=== PATIENT | male | born 1955 | race Caucasian/White ===

== ENCOUNTER 2021-12-30 08:57 | Day surgery (SDC) | payer MEDICARE, OTHER ==
[2021-12-26 09:07] VITALS: BMI 23.6
[~2021-12-30 08:57] MED LIST: LACTATED RINGERS 1,000 ML IV SCH
[2021-12-30 09:39] VITALS: TEMP 97.5
[2021-12-30] MEDS ORDERED: PROPOFOL 10 MG/ML 20 ML VIAL IV ONE (10:23)
--- NOTE | 2021-12-30 10:38 | P.PCN ---
Date of Procedure: 12/30/21 Procedure(s) Performed: BRIEF HISTORY: Patient is a 66-year-old pleasant white male scheduled for an elective colonoscopy as a part of screening for colorectal neoplasia PROCEDURE PERFORMED: Colonoscopy. PREOPERATIVE DIAGNOSIS: Screening for colon cancer. IV sedation per Anesthesia. PROCEDURE: After informed consent was obtained, the patient, was brought into the endoscopy unit. IV sedation was administered by Anesthesia under continuous monitoring. Digital rectal examination was normal. Initially the Olympus CF-160 flexible video colonoscope was then inserted in the rectum, gradually advanced into the cecum without any difficulty. Careful examination was performed as the scope was gradually being withdrawn. Ileocecal valve and the appendiceal orifice were visualized and appeared normal. Prep was excellent. Mucosa of the cecum, ascending colon, transverse colon, descending colon, sigmoid colon, and rectum appeared normal. Retroflexion was performed in the rectum and small internal hemorrhoids were seen. The patient tolerated the procedure well. IMPRESSION: Normal-appearing colon from rectum to cecum with no evidence of colorectal neoplasia. RECOMMENDATIONS: Findings of this examination were discussed with the patient well as his family. He was advised to have a repeat screening colonoscopy in 10 years..
[2021-12-30 11:05] VITALS: BP 133/72; PULSE 70; RESP 20
== END 2021-12-30 11:10 | disposition home or self-care (01) ==
LOC: ORWHC2ENDO 08:57
PROVIDERS: ATTEND Internal Medicine Gastroenterology
DX: Z12.11 Encounter for screening for malignant neoplasm of colon (principal); K64.8 Other hemorrhoids; Z85.46 Personal history of malignant neoplasm of prostate; Z97.2 Presence of dental prosthetic device (complete) (partial)
CPT/HCPCS: J2704; G0121

== ENCOUNTER → 2024-02-04 | Outpatient (CLI) | payer MEDICARE, OTHER ==
--- NOTE | 2024-02-04 12:40 | US ---
EXAMINATION TYPE: US kidneys/renal and bladder DATE OF EXAM: 02/04/2024 COMPARISON: NONE CLINICAL INDICATION: Male, 68 years old with history of R31.1 BENIGN ESSENTIAL MICROSCOPIC HEMATURIA; microscopic hematuria once EXAM MEASUREMENTS: Right Kidney: 10.4 x 4.7 x 4.9 cm Left Kidney: 10.6 x 3.8 x 4.8 cm Right Kidney: No hydronephrosis or masses seen Left Kidney: No hydronephrosis or masses seen Bladder: wnl There is no evidence for hydronephrosis at this point in time. No nephrolithiasis is seen. No josie s are identified. The urinary bladder is anechoic. Bilateral ureteral jets are seen. IMPRESSION: 1. Unremarkable right kidney. 2. Cannot exclude mild hydronephrosis of the left kidney. CT urogram would be useful for further eval uation.
== END | disposition home or self-care (01) ==
LOC: RADUSWWP 09:43
PROVIDERS: ATTEND Urology
DX: R31.1 Benign essential microscopic hematuria (principal)
CPT/HCPCS: 76770

== ENCOUNTER 2024-03-23 10:12 | Day surgery (SDC) | payer MEDICARE, OTHER ==
[2024-03-21 14:12] VITALS: BMI 23.2
--- NOTE | 2024-03-22 07:32 | P.GSHP ---
History of Present Illness H&P Date: 03/22/24 Chief Complaint: Microhematuria Patient is a 68-year-old white male who underwent a robotic assisted laparoscopic prostatectomy in 2015 for prostate cancer. He has been found to have microhematuria. His PSA level is undetectable. Renal ultrasound shows possible mild left hydronephrosis. Cystoscopy shows a 1.5 cm bladder calculus attached to a suture at the bladder dome. - Constitutional Constitutional: Denies chills, Denies fever - Genitourinary (Male) Genitourinary: Reports dysuria, Reports hematuria Past Medical History Past Medical History: Cancer, Prostate Disorder Additional Past Medical History / Comment(s): hx prostate cancer, BLADDER STONES History of Any Multi-Drug Resistant Organisms: None Reported Past Surgical History: Hernia Repair, Orthopedic Surgery, Prostate Surgery Additional Past Surgical History / Comment(s): 3 fingers rt hand repair (saw injury), surgery for fx left hip, PROSTATECTOMY Past Anesthesia/Blood Transfusion Reactions: No Reported Reaction Smoking Status: Former smoker - Past Family History Father Family Medical History: Cancer Additional Family Medical History / Comment(s): bone Mother Family Medical History: Cancer Additional Family Medical History / Comment(s): breast Medications and Allergies Home Medications Medication Instructions Recorded Confirmed Type Alive Multivitamin 1 tab PO DAILY 12/26/21 03/21/24 History Allergies Allergy/AdvReac Type Severity Reaction Status Date / Time No Known Allergies Allergy Verified 12/30/21 09:29 Surgical - Exam - General well developed, well nourished, no distress - Respiratory normal respiratory effort - Abdomen Abdomen: soft, non tender, no guarding, no rigid, no rebound - Genitourinary normal penis with no external lesions, testicles non-tender - Psychiatric oriented to time, oriented to person, oriented to place, speech is normal, memory intact Assessment and Plan (1) Calculus in bladder Status: Acute Code(s): N21.0 - CALCULUS IN BLADDER SNOMED Code(s): 43480389 (2) Unspecified hydronephrosis Status: Acute Code(s): N13.30 - UNSPECIFIED HYDRONEPHROSIS SNOMED Code(s): 06379277 Plan: Cystoscopy with cystolithotripsy, left retrograde pyelogram, possible left uret eroscopy, possible left ureteral stent insertion. The procedure has been reviewed in detail with the patient. It was explained to him that the bladder calculus developed as a result of having a permanent suture in the bladder, and as such I intend to remove the visible portion of the suture from the bladder. Potential risks have been reviewed, which include anesthesia, bleeding, infection, and bladder perforation.
[~2024-03-23 10:12] MED LIST changes: +HYDROmorphone 0.5 MG/0.5 ML SYRINGE IVP PRN; -LACTATED RINGERS 1,000 ML IV SCH; +LIDOCAINE 1% (10MG/ML) FOR IV START INTRADERMA PRN; +droPERidol 5 MG/2 ML VIAL IVP ONE
[2024-03-23] MEDS: LACTATED RINGERS 1,000 ML IV SCH (10:46)
[2024-03-23] MEDS: ONDANSETRON 4 MG/2 ML VIAL IVP ONE (10:47)
[2024-03-23] MEDS: DEXAMETHASONE SOD PHOSPHATE 4 MG/ML 1 ML VIAL IV ONE (10:47)
[2024-03-23] MEDS: IV FLUID CONTINUATION 1,000 ML IV ONE (10:48)
[2024-03-23] MEDS ORDERED: LIDOCAINE 1% INJ 10MG/ML (20 ML MDV) ONE (12:57)
[2024-03-23] MEDS ORDERED: PHENYLEPHRINE 10 MG/ML VIAL ONE (12:57)
[2024-03-23] MEDS ORDERED: fentaNYL (PF) 50 MCG/ML 2 ML AMP ONE (12:57)
[2024-03-23] MEDS ORDERED: SUCCINYLCHOLINE CHLORIDE 200 MG/10 ML VIAL IV ONE (12:57)
[2024-03-23] MEDS ORDERED: ROCURONIUM 10 MG/ML (5 ML VIAL) IV ONE (12:57)
[2024-03-23] MEDS ORDERED: PROPOFOL 10 MG/ML 20 ML VIAL IV ONE (12:57)
[2024-03-23] MEDS ORDERED: MIDAZOLAM 2 MG/2 ML VIAL ONE (12:57)
[2024-03-23] MEDS: IOPAMIDOL-370 100ML BTL MISCELLANE ONE (13:36)
--- NOTE | 2024-03-23 14:07 | FL ---
EXAMINATION TYPE: FL urography retrograde DATE OF EXAM: 03/23/2024 COMPARISON: NONE HISTORY: Left retrograde pyelogram TECHNIQUE: Fluoroscopy. FINDINGS: FL TIME .47 SEC [id number] LEFT RETROGRADE PYELOGRAM . IMPRESSION: As Above.
[2024-03-23] MEDS: LACTATED RINGERS 1,000 ML IV ONE (14:13)
[2024-03-23 14:30] VITALS: TEMP 97
--- NOTE | 2024-03-23 14:44 | P.OP ---
Date of Procedure: 03/23/24 Preoperative Diagnosis: Bladder calculus, bladder foreign body, left hydronephrosis Postoperative Diagnosis: Bladder calculus, bladder foreign body Procedure(s) Performed: Cystoscopy, left retrograde pyelogram, cystolithotripsy, removal of bladder foreign body Anesthesia: BLESSINGA Surgeon: Chase Sparks Estimated Blood Loss (ml): 5 IV fluids (ml): 800 Pathology: other (Bladder calculus fragments and foreign body (suture)) Condition: stable Disposition: PACU Indications for Procedure: Patient is a 68-year-old white male who underwent a robotic assisted laparoscopic prostatectomy in 2014 for prostate cancer. He has been found to have microhematuria. His PSA level is undetectable. Renal ultrasound shows possible mild left hydronephrosis. Cystoscopy shows a 1.5 cm bladder calculus attached to a suture at the bladder dome. Operative Findings: 2 cm calculus adherent to Prolene suture on anterior bladder wall. Raised erythema cephalad to the left ureteral orifice. Normal left retrograde pyelogram. Description of Procedure: The patient was taken to the operating room and placed in the dorsal lithotomy position, with legs supported in Kamari stirrups. The external genitalia was prepped and draped sterilely. The 30 lens was used to introduce the 21-Somali Cueto cystoscopic sheath through the urethra and into the bladder under direct vision. The urethra appeared normal. The prostate is surgically absent. The bladder was examined in its entirety. The ureteral orifices appeared normal. Erythema was noted cephalad to the left ureteral orifice. Clear urine effluxed from both ureteral orifices. A calculus measuring approximately 2 cm in size was adherent to a Prolene suture arising from the anterior bladder wall, to the left of the midline. No tumors were seen. Using a 10 Somali cone-tip catheter, a left retrograde pyelogram was performed. The ureter was normal in course and caliber. The intrarenal collecting system appeared normal. There was no evidence of hydronephrosis, and the system drained promptly. No filling defects were seen. Using cold cup biopsy forceps, 2 biopsies were obtained from the area of erythema cephalad to the left ureteral orifice. The Bugbee electrode was used to fulgurate the biopsy sites, attaining excellent hemostasis. It is presumed that the biopsies will show inflammation, as the erythema is in the area where the calculus would irritate the bladder when it is empty. Endoscopic scissors were used to cut 1 end of the suture at the level of the mucosa. Grasping forceps were then used to grasp the other end of the suture, removing it from the bladder wall. Inspection of the bladder where the suture was initially cut revealed a stump of suture within the bladder wall. This was grasped with grasping forceps and a 4-5 cm length of suture was pulled into the bladder. Once all of the suture was detached from the bladder wall, the 550 micron Holmium laser probe was used to perform lithotripsy. Lithotripsy was continued until all calculus fragments could be removed using the ClearLine Mobile evacuator. Once this was completed, the bladder was inspected. There was no active bleeding, and no evidence of bladder perforation. A 16-Somali Bahena catheter was placed. The return was clear. The patient tolerated the procedure well was taken to the recovery room in stable condition.
[2024-03-23 15:30] VITALS: RESP 20
[2024-03-23 16:40] VITALS: BP 120/64; PULSE 76
== END 2024-03-23 16:41 | disposition home or self-care (01) ==
LOC: OR 10:12
PROVIDERS: ATTEND Urology
DX: T19.1XXA Foreign body in bladder, initial encounter (principal); N21.0 Calculus in bladder; N13.30 Unspecified hydronephrosis; Z85.46 Personal history of malignant neoplasm of prostate; Z87.891 Personal history of nicotine dependence; W44.9XXA Unspecified foreign body entering into or through a natural orifice, initial encounter
CPT/HCPCS: 52354; 88305; 82365; 74420; C1758 ×2; J2250; J0330; J1100; J0690; J2405; J2001; J3010; J2704; Q9967; J2371